=== PATIENT | female | born 1990 | race Caucasian/White ===

== ENCOUNTER 2018-03-02 20:33 | Emergency (ER) | payer MEDICAID, OTHER ==
--- NOTE | 2018-03-02 21:04 | Emergency Department Record ---
History of Present Illness - General Chief Complaint: Ankle/Foot Injury Stated Complaint: RT FOOT SWELLING/PAIN/BRUISED Time Seen by Provider: 03/02/18 20:58 Source: Patient Mode of Arrival: Ambulatory Limitations: No limitations - History of Present Illness Initial Comments: 27 yo male female presents with foot and ankle pain. She fell at 2am on steps. She has had persistent pain since then. No lacerations. Skin is intact. No other injuries. MD Complaint: Ankle injury, Foot injury Place: Home Severity: Moderate Improves With: Immobilization Worsens With: Movement, Palpation Context: Fall - Related Data Home Medications Medication Instructions Recorded Confirmed Last Taken No Home Med [NO HOME MEDS] 03/02/18 03/02/18 Unknown Allergies Allergy/AdvReac Type Severity Reaction Status Date / Time amoxicillin Allergy pt unsure Verified 03/02/18 20:57 Review of Systems Constitutional: Denies: Chills, Fever, Weakness Eyes: Denies: Eye discharge ENT: Denies: Congestion, Throat pain Respiratory: Denies: Cough Cardiovascular: Denies: Chest pain, Syncope Endocrine: Denies: Fatigue Gastrointestinal: Denies: Abdominal pain, Diarrhea, Nausea, Vomiting Genitourinary: Denies: Dysuria Musculoskeletal: Reports: As per HPI, Arthralgia, Myalgia Skin: Denies: Bruising, Change in color, Rash Neurological: Denies: Headache, Numbness, Weakness Psychiatric: Denies: Anxiety Hematological/Lymphatic: Denies: Blood Clots, Easy bleeding, Easy bruising, Swollen glands Physical Exam - General General Appearance: Alert, Oriented x3, Cooperative, No acute distress Limitations: No limitations - Head Head exam: Atraumatic, Normocephalic, Normal inspection - Eye Eye exam: Normal appearance. negative: Conjunctival injection, Scleral icterus - ENT ENT exam: Normal exam, Mucous membranes moist Ear exam: Normal external inspection Nasal Exam: Normal inspection Mouth exam: Normal external inspection Teeth exam: Normal inspection Throat exam: Normal inspection - Neck Neck exam: Normal inspection, Full ROM. negative: Tenderness - Respiratory Respiratory exam: Normal lung sounds bilaterally. negative: Respiratory distress - Cardiovascular Cardiovascular Exam: Regular rate, Normal rhythm, Normal heart sounds - GI/Abdominal GI/Abdominal exam: Soft. negative: Tenderness - Rectal Rectal exam: Deferred - exam: Deferred - Extremities Extremities exam: Normal inspection, Tenderness Image of Full Body: 1 - swelling, bruising, no deformity, achilles is non tender, NO foot tenderness or swelling, no right 5th MT tenderness - Neurological Neurological exam: Alert, Oriented X3 - Psychiatric Psychiatric exam: Normal affect, Normal mood. negative: Agitated, Anxious - Skin Skin exam: Dry, Intact, Normal color, Warm Course Vital Signs 03/02/18 20:55 Temperature 98.1 F Pulse Rate [ 106 H Pulse Ox Probe] Respiratory 20 Rate Blood Pressure 146/104 [Left Arm] Pulse Ox 97 - Reevaluation(s) Reevaluation #1: The patient declined pain medication at this time 03/02/18 21:05 03/02/18 21:46 The XRay was reviewed No acute fracture She has pain and swelling and will be treated with supportive measures We discussed home care and follow up instructions Disposition Disposition: Discharge Clinical Impression: High ankle sprain Disposition: Home, Self-Care Condition: (1) Good Instructions: Ankle Sprain (ED) Additional Instructions: Ice and elevate Use the crutches and boot for support and comfort See your doctor in the next week if not improving No weight bearing until pain free. Forms: Patient Portal Access Time of Disposition: 21:48 Quality - Quality Measures Quality Measures: N/A - Blood Pressure Screening Does Patient Have Any of the Following: No Blood Pressure Classification: Hypertensive Reading Systolic Measurement: 146 Diastolic Measurement: 104 Screening for High Blood Pressure: < Pre-Hypertensive BP, F/U Documented > [ [id number]] Pre-Hypertensive Follow-up Interventions: Referral to alternative/primary care provider.
--- NOTE | 2018-03-03 16:56 | RADIOLOGY REPORT ---
DATE: 03/02/2018. EXAM: RIGHT FOOT. HISTORY: Injury. TECHNIQUE: Three views of the right foot were performed. FINDINGS: No evidence of fracture or dislocation. No lytic or blastic lesion. No calcaneal spur. IMPRESSION: NEGATIVE RIGHT FOOT EXAMINATION. JOB NUMBER: [id number] MTDD
== END 2018-03-02 22:13 | disposition home or self-care (01) ==
LOC: ER 20:33
DX: S93.491A Sprain of other ligament of right ankle, initial encounter (principal); W10.9XXA Fall (on) (from) unspecified stairs and steps, initial encounter; Y92.009 Unspecified place in unspecified non-institutional (private) residence as the place of occurrence of the external cause
CPT/HCPCS: 99283